=== PATIENT | female | born 1940 | race Asian ===

== ENCOUNTER 2024-02-26 17:03 | Inpatient (IN) | payer OTHER, SELFPAY ==
[2024-02-26] VITALS (14 sets, daily range): BP systolic 141–170; BP diastolic 75–97; BMI 23.3
--- NOTE | 2024-02-26 13:45 | ED.GENMED ---
ED Provider Triage
<Noemy Patterson PA-C - Last Filed: 02/26/24 16:55>
-
Patient seen by provider in Triage?: Seen in Triage
Attestation: A medical screening examination has been initiated by a qualified medical provider. Based on the assessment performed at this time, it has been determined that an emergent medical condition may exist and the patient has been informed
that further medical evaluation and possible additional diagnostic testing may be needed.
HPI: 83yoF here with black stools x 4 days. Had outpatient blood work on 02/16/24 which showed a hemoglobin of 7.6. Hx of colon cancer, currently on PO chemo. Moving to the area from [place]. Has a new patient appt with Luis Enrique Smiley next week. Told to go
to the ED due to her dark stools.
GENERAL: Alert , in no apparent distress
EYE: No visual abnormalities.
NECK: Trachea midline
ENT: No visible abnormalities.
LUNGS: No acute respiratory distress
NEUROLOGICAL: Alert and oriented
SKIN: Skin intact. Pallor noted.
MUSCULOSKELETAL: Moving extremities normally
PSYCH: Normal and appropriate interaction.
This is a medical evaluation conducted in person to initiate diagnostic evaluation and provide initial therapeutics. Please see further documentation by the treating clinician.
CBC, CMP, coags, and type and screen ordered.
History of Present Illness
<Noemy Patterson PA-C - Last Filed: 02/26/24 16:55>
General
Chief Complaint: Abnormal Lab Value
Time Seen by Provider: 02/26/24 14:35
<Jose Mendenhall MD - Last Filed: 02/26/24 16:48>
General
Source: patient and family (Son and daughter)
Exam Limitations: none
Nursing documentation reviewed up to this point in time: agreed with
History of Present Illness
History of Present Illness:
83-year-old female with a past medical history of hypertension, hyperlipidemia, diabetes, dementia, colon cancer who presents to the emergency room with her family for evaluation of anemia found on outpatient labs. Patient recently moved to the
area from [place]. She has been receiving care for colon cancer in [place] she has been on capecitabine. She just had an appointment at [facility] to establish care for her cancer there. During this appointment she had routine blood work drawn�this
was on 02/16/2024. She received a call that she was significantly anemic and that she should go to the emergency room. She does feel very weak and tired. Denies any chest pain, shortness of breath, dizziness. She has had dark stools over the past
few days, no bloody stools. No nausea or vomiting. She has vague generalized abdominal discomfort which has been a chronic issue related to her cancer�no acute change. She is not on any blood thinners. Baseline hemoglobin was around 11 in
May 2023 according to family.
Past History
<Noemy Patterson PA-C - Last Filed: 02/26/24 16:55>
Past History
ED Past Medical History: HTN, Hypercholesterolemia, NIDDM, Psychiatric (Anxiety, Depression) and Other (ULcers, tinnitus)
ED Past Surgical History: Gynecological (D&C)
Social History
Tobacco: Non-smoker
Alcohol: None
Personal:
Living: with family
Review of Systems
<Jose Mendenhall MD - Last Filed: 02/26/24 16:48>
Review of Systems
All Other Systems: ROS reviewed and negative except as documented in HPI and ROS
Constitutional: Reports fatigue; Denies fever
Respiratory: Denies trouble breathing
Cardiac: Denies chest pain or palpitations
ABD/GI: Reports abdominal pain and black stools; Denies nausea, vomiting, diarrhea or constipated
Musculoskeletal: Denies neck pain or back pain
Neurological: Denies dizzy or headache
Phy Exam
<Jose Mendenhall MD - Last Filed: 02/26/24 16:48>
Physical Exam
Physical Exam:
General: Awake, alert; no acute distress
Head: Normocephalic, atraumatic
Eyes: Conjunctiva normal, pale conjunctiva
Throat: Airway intact, handling secretions
Neck: Trachea midline, supple without meningismus
Lungs: Clear to auscultation bilaterally, no wheezing, rales, rhonchi
Heart: Regular rate and rhythm, no murmurs, gallops, or rubs
Abd: Soft, non distended, nontender
Rectal: Dark brown stool heme faintly positive, no rectal masses appreciated
Neuro: No gross deficits
Skin: Somewhat cool and pale
Extremities: No edema in extremities, equal pulses in all extremities
Scores
<Jose Mendenhall MD - Last Filed: 02/26/24 16:48>
Heart Failure Risk
Heart Failure Risk Score: Not Applicable
Heart Score for Chest Pain Patients
STEMI patient?: Not applicable
Withdrawal Assessment of Alcohol
Withdrawal Assessment Completed?: Not applicable
Course
<Noemy Patterson PA-C - Last Filed: 02/26/24 16:55>
Orders/Labs/Results
Orders:
Orders
02/26/24 13:55
Type+Screen Urgent
Complete Blood Count/With Diff Urgent
Comprehensive Metabolic Panel Urgent
PTT Urgent
Prothrombin Time Urgent
02/26/24 14:21
ABO2 Urgent
BBK Wristband Number:
Associate notified that ABO2 has been ordered: Dr. Valdez
Date: 02/26/24
Time: 14:10
Supervisor [employer] Department ID: [id number]
02/26/24 14:55
* Blood Bank Products Urgent
Blood Bank Products: *Packed RBC Leuko(PRBC's)
Quantity: 2
Transfuse Today: Yes
Reason: Anemia
02/26/24 15:42
Pantoprazole [Protonix IV] 80 mg IV NOW STA
02/26/24 16:20
Admit/Transfer Patient As Directed
Co-Sign Provider:
Level of Care: Inpatient admission
Assign to:: Medical/Surgical
Physician / Group: Thi
Diagnosis: Acute blood loss anemia, GI bleed
Reason for Hospitalization: Blood transfusion, GI consult
Expected length of stay greater than two midnights?: Yes
ELOS- Estimated Length of Stay in days: 3
I certify the patient meets the requirements for IP care: Yes
PRN Pain Medication Management As Directed
May give lesser potent ordered pain med per pt: Yes
preference::
Protocol:: Medication orders for pain may be administered in a
manner that supports deferring to patient preference
when the pt is:
- Requesting an ordered lesser potent pain medication.
Least to most potent pain medications are defined
as: acetaminophen < NSAID < tramadol < opioids
(morphine, oxycodone, hydromorphone).
- Requesting a lesser dose of the same medication IF
ORDERED.
- Requesting a less intrusive route of administration
if both routes are prescribed by the provider (PO <
IV).
02/26/24 16:22
Code Status As Directed
Resuscitation Status: Do not resuscitate
Reached after discussion with pt or family/Healthcare POA: Yes
DNR Bracelet Application ONCE
Abnormal Lab Results
02/26/24
13:55
RBC 2.09 L 10^6/uL
(4.20-5.40)
Hgb 6.5 L* g/dL
(12.0-16.0)
Hct 19.8 L* %
(37.0-47.0)
MCH 31.1 H pg
(27.0-31.0)
MCHC 32.8 L g/dL
(33.0-37.0)
RDW 22.4 H %
(11.5-14.5)
Absolute Lymphs (auto) 1.0 L 10^3/uL
(1.2-3.4)
Lymphocytes % 17.9 L %
(20.5-51.1)
PT 15.9 H Sec
(11.4-14.6)
Sodium 133 L mmol/L
(135-145)
Glucose 277 H mg/dl
(70-99)
Alkaline Phosphatase 32 L U/L
(38-126)
Total Protein 5.5 L g/dl
(6.3-8.2)
Albumin 3.3 L g/dl
(3.5-5.0)
Crossmatch IS Only See Detail
02/26/24 13:55
02/26/24 13:55
Vital Signs
Initial and Last Documented VS:
Initial Vital Signs
Temp Pulse Resp BP Pulse Ox
98.3 F 84 18 161/85 100
02/26/24 13:46 02/26/24 13:46 02/26/24 13:46 02/26/24 13:46 02/26/24 13:46
Last Documented Vital Signs
Temp Pulse Resp BP Pulse Ox
98.6 F 68 19 170/83 99
02/26/24 15:49 02/26/24 16:27 02/26/24 16:27 02/26/24 16:27 02/26/24 16:27
<Jose Mendenhall MD - Last Filed: 02/26/24 16:48>
Orders/Labs/Results
Orders:
Orders
02/26/24 13:55
Type+Screen Urgent
Complete Blood Count/With Diff Urgent
Comprehensive Metabolic Panel Urgent
PTT Urgent
Prothrombin Time Urgent
02/26/24 14:21
ABO2 Urgent
BBK Wristband Number:
Associate notified that ABO2 has been ordered: Dr. Valdez
Date: 02/26/24
Time: 14:10
Supervisor [employer] Department ID: [id number]
02/26/24 14:55
* Blood Bank Products Urgent
Blood Bank Products: *Packed RBC Leuko(PRBC's)
Quantity: 2
Transfuse Today: Yes
Reason: Anemia
02/26/24 15:42
Pantoprazole [Protonix IV] 80 mg IV NOW STA
02/26/24 16:20
Admit/Transfer Patient As Directed
Co-Sign Provider:
Level of Care: Inpatient admission
Assign to:: Medical/Surgical
Physician / Group: Thi
Diagnosis: Acute blood loss anemia, GI bleed
Reason for Hospitalization: Blood transfusion, GI consult
Expected length of stay greater than two midnights?: Yes
ELOS- Estimated Length of Stay in days: 3
I certify the patient meets the requirements for IP care: Yes
PRN Pain Medication Management As Directed
May give lesser potent ordered pain med per pt: Yes
preference::
Protocol:: Medication orders for pain may be administered in a
manner that supports deferring to patient preference
when the pt is:
- Requesting an ordered lesser potent pain medication.
Least to most potent pain medications are defined
as: acetaminophen < NSAID < tramadol < opioids
(morphine, oxycodone, hydromorphone).
- Requesting a lesser dose of the same medication IF
ORDERED.
- Requesting a less intrusive route of administration
if both routes are prescribed by the provider (PO <
IV).
02/26/24 16:22
Code Status As Directed
Resuscitation Status: Do not resuscitate
Reached after discussion with pt or family/Healthcare POA: Yes
DNR Bracelet Application ONCE
Abnormal Lab Results
02/26/24
13:55
RBC 2.09 L 10^6/uL
(4.20-5.40)
Hgb 6.5 L* g/dL
(12.0-16.0)
Hct 19.8 L* %
(37.0-47.0)
MCH 31.1 H pg
(27.0-31.0)
MCHC 32.8 L g/dL
(33.0-37.0)
RDW 22.4 H %
(11.5-14.5)
Absolute Lymphs (auto) 1.0 L 10^3/uL
(1.2-3.4)
Lymphocytes % 17.9 L %
(20.5-51.1)
PT 15.9 H Sec
(11.4-14.6)
Sodium 133 L mmol/L
(135-145)
Glucose 277 H mg/dl
(70-99)
Alkaline Phosphatase 32 L U/L
(38-126)
Total Protein 5.5 L g/dl
(6.3-8.2)
Albumin 3.3 L g/dl
(3.5-5.0)
Crossmatch IS Only See Detail
02/26/24 13:55
02/26/24 13:55
Vital Signs
Initial and Last Documented VS:
Initial Vital Signs
Temp Pulse Resp BP Pulse Ox
98.3 F 84 18 161/85 100
02/26/24 13:46 02/26/24 13:46 02/26/24 13:46 02/26/24 13:46 02/26/24 13:46
Last Documented Vital Signs
Temp Pulse Resp BP Pulse Ox
98.6 F 68 19 170/83 99
02/26/24 15:49 02/26/24 16:27 02/26/24 16:27 02/26/24 16:27 02/26/24 16:27
<Jose Mendenhall MD - Last Filed: 02/26/24 16:48>
MDM/Problems Addressed
Differential Diagnosis Includes:
Acute on chronic anemia�likely secondary to GI bleeding from cancer versus ulcer versus AVM
MDM/Problems Addressed:
83-year-old female presents for evaluation of acute on chronic anemia�hemoglobin 7.5 on labs drawn 02/16/2024. Also has had dark stools for the past few days. She is not on a blood thinner. Mildly hypertensive, heart rate 70s 80s, rest of vitals
normal. Physical exam as above�notable for faintly positive Hemoccult. Will place large-bore IV send labs including a CBC and a CMP, type and screen, coags. Plan for transfusion of PRBCs�consented for transfusion.
Labs reviewed: CBC confirms anemia�actually worsening now 6.5 today with hematocrit of 19.8%. Platelets acceptable. CMP shows hyperglycemia in the setting of known diabetes no signs of DKA no other clinically significant abnormalities. Transfused
2 units of PRBCs. Will treat with IV PPI dark stools and positive heme although would expect that bleeding is more likely cancer related. Case discussed with hospitalist for admission.
Chronic conditions affecting care:
Colon cancer
Acute Exacerbation and/or Progression of Chronic Illness:
Acutely hypertensive
Acute Exacerbation and/or Progression of Chronic Illness: HTN
<Jose Mendenhall MD - Last Filed: 02/26/24 16:48>
*Pulse Oximetry
Patient hypoxic: no
*Critical Care Note
Total Time (30-74mins, 75-104mins- exclusive of procedures): Not Applicable
Data Reviewed
Source: patient and family
<Jose Mendenhall MD - Last Filed: 02/26/24 16:48>
Patient Management
Discussion with other providers: Hospitalist (Discussed with hospitalist)
Escalation/DeEscalation of care consider admission/obs:
Admission indicated
ED Attending Note
<Noemy Patterson PA-C - Last Filed: 02/26/24 16:55>
-
Portions of this chart may have been created with voice recognition software.� Occasional wrong word or��sound alike� substitutions may have occurred due to the inherent limitations of voice recognition software.
Discharge Plan
Departure
Patient Disposition: Admit
Date of Disposition: 02/26/24
Time of Disposition: 15:43
Admit to doctor: Megan
Presentation/result/management discussed w/ accepting MD/DO: Hospitalist
Discharge Problem:
GI bleed, Acute on chronic blood loss anemia
Prescriptions:
No Action
atorvastatin [Lipitor] 10 mg Tablet
10 mg PO DAILY
acetaminophen-codeine 300-30 mg tablet
1 tab PO Q6HPRN PRN (Reason: SEVERE PAIN)
capecitabine 500 mg Tablet
1,000 mg PO BID
famotidine [Pepcid] 20 mg Tablet
20 mg PO HS
rivastigmine tartrate 3 mg Capsule
3 mg PO BID
oxycodone 5 mg Tablet
5 mg PO HS
ezetimibe [Zetia] 10 mg Tablet
10 mg PO DAILY
ibuprofen-acetaminophen [Advil Dual Action] 125-250 mg Tablet
1 tab PO Q8HPRN PRN (Reason: MILD PAIN)
Referrals:
NONE,* [Family Provider] -
Interventions
Interventions:
*Risk Screen - Suicide Last Done: 02/26/24 15:42
*General Assessment Last Done: 02/26/24 15:35
*Neglect/Abuse Screening Last Done: 02/26/24 15:35
ED- Fall Risk Assessment Last Done: 02/26/24 15:46
*ED COVID-19 Vaccine History Last Done: 02/26/24 15:35
Discharge Date and Time
Print Language: NAURUAN
[2024-02-26 14:23] LABS: ALT (SGPT) 16 U/L (0-35); AST (SGOT) 23 U/L (14-36); Albumin 3.3 g/dl (3.5-5.0); Alkaline Phosphatase 32 U/L (38-126); Blood Urea Nitrogen 17 mg/dl (7-17); Calcium 8.4 mg/dl (8.4-10.2); Carbon Dioxide 23 mmol/L (22-30); Chloride 101 mmol/L (98-107); Glucose 277 mg/dl (70-99); INR 1.29; PT 15.9 Sec (11.4-14.6); Potassium 4.1 mmol/L (3.5-5.1); Sodium 133 mmol/L (135-145); Total Bilirubin 0.6 mg/dl (0.2-1.3); Total Protein 5.5 g/dl (6.3-8.2); eGFR > 60.00
[2024-02-26 14:25] LABS: APTT 31.8 Sec (23.4-35.0)
[2024-02-26 15:08] LABS: Hematocrit 19.8 % (37.0-47.0); Hemoglobin 6.5 g/dL (12.0-16.0); Mean Corp Hgb Conc. 32.8 g/dL (33.0-37.0); Mean Corpuscular Hgb 31.1 pg (27.0-31.0); Mean Corpuscular Volume 94.7 fL (81.0-99.0); Mean Platelet Volume 8.7 fL (7.4-10.4); Platelet Count 361 10^3/uL (130-400); Red Blood Cell Count 2.09 10^6/uL (4.20-5.40); Red Cell Dist. Width 22.4 % (11.5-14.5); White Blood Cell Count 5.3 10^3/uL (4.8-10.8)
[2024-02-26 15:20] LABS: % Basophils 0.4 % (0-2); % Eosinophils 0.9 % (0-6); % Immature Granulocytes 0.2 % (0-0.5); % Lymphocytes 17.9 % (20.5-51.1); % Neutrophils 74.6 % (42.2-75.2); Absolute Eosinophils 0.1 10^3/uL (0-0.7); Absolute Monocytes 0.3 10^3/uL (0.1-0.6); Nucleated Red Blood Cells % 0 %
[2024-02-26 15:22] LABS: Anisocytosis 2+; Normal RBC Morphology No
[2024-02-26 15:23] LABS: Hypochromasia 3+
[2024-02-26 15:24] LABS: Microcytosis 1+
--- NOTE | 2024-02-26 16:25 | HPS.HSE ---
Family Physician
-
Family Physician: * NONE
Chief Complaint
-
Melena, abdominal pain
History of Present Illness
83-year-old [place] female accompanied by family to the emergency room for evaluation of melena and abdominal pain along with anemia.
Family provided all of history as patient does not speak Polish. She only speaks Yakut.
Family states she was diagnosed with gastric cancer in December in [place]. She just moved to [place] this past week.
Has been on oral chemotherapy for gastric cancer since diagnosis. Has not had any surgery.
Has had chronic abdominal pain for the past year.
Has never been transfused.
Last colonoscopy was 2009.
Denies hematochezia.
Has been using ibuprofen on a daily basis for treatment of abdominal pain.
Medical History
Past Medical History
Past Medical History: Reports Other
Additional Past Medical History:
Lewy body dementia
Gastric cancer
Essential hypertension
DM2
Hyperlipidemia
Past Surgical History: Reports Other
Additional Past Surgical History:
Bilateral cataract surgery
Social History
Tobacco: Non-smoker
Alcohol: None
Drug: None
Personal:
Living: With Family
Employment: Not Employed
Family History
Family History: Not pertinent
Allergies / Home Medications
Allergies reflects when Allergies were last updated in [email or web address].
Home Medications with original date entered in [email or web address]
Allergy/Medication List:
Allergies
Allergy/AdvReac Type Severity Reaction Status Date / Time
No Known Allergies Allergy Verified 02/26/24 13:49
Home Medications
acetaminophen 300 mg-codeine 30 mg tablet 1 tab PO Q6HPRN PRN SEVERE PAIN 02/26/24
atorvastatin 10 mg tablet (Lipitor) 10 mg PO DAILY 02/26/24
capecitabine 500 mg tablet 1,000 mg PO BID 02/26/24
ezetimibe 10 mg tablet (Zetia) 10 mg PO DAILY 02/26/24
famotidine 20 mg tablet (Pepcid) 20 mg PO HS 02/26/24
ibuprofen 125 mg-acetaminophen 250 mg tablet (Advil Dual Action) 1 tab PO Q8HPRN PRN MILD PAIN 02/26/24
oxycodone 5 mg tablet 5 mg PO HS 02/26/24
rivastigmine tartrate 3 mg capsule 3 mg PO BID 02/26/24
Review of Systems
-
Unable to obtain full review of systems at this time due to: Language Barrier
History Source: Family
Physical Exam
Vital Signs
Vital Signs
Temp Pulse Resp BP Pulse Ox
98.6 F 70 19 165/75 98
02/26/24 15:49 02/26/24 15:49 02/26/24 15:49 02/26/24 15:49 02/26/24 15:00
Physical Exam
General: Well Developed, Well Nourished, No Apparent Distress and Comfortable
HEENT: NormoCephalic, Anicteric and Moist mucous membranes
Respiratory: Clear
Cardiac: S1/S2 and Regular Rhythm
Breast: Deferred by me
GI: Soft, Non Distended and Tender (Periumbilical, no guarding or rebound)
Genito-urinary: Deferred by me
Musculoskeletal: No Clubbing, No Cyanosis and No Edema
Skin: Warm and Dry
Neuro: Awake and Alert
Hematologic/Lymphatic: No Lymphadenopathy
Psych: Calm
Laboratory Results
-
02/26/24 13:55
02/26/24 13:55
Laboratory Results
PT 15.9 Sec (11.4-14.6) H 02/26/24 13:55
INR 1.29 02/26/24 13:55
APTT 31.8 Sec (23.4-35.0) 02/26/24 13:55
Total Bilirubin 0.6 mg/dl (0.2-1.3) 02/26/24 13:55
AST 23 U/L (14-36) 02/26/24 13:55
ALT 16 U/L (0-35) 02/26/24 13:55
Alkaline Phosphatase 32 U/L (38-126) L 02/26/24 13:55
Impression/Plan
-
Acute on chronic blood loss anemia -due to GI bleed. Suspect due to underlying malignancy, cannot rule out peptic ulcer disease due to NSAIDs. Admit to MedSurg. Blood transfusions initiated in the emergency room. Hemodynamically stable. CBC in
the morning.
Acute on chronic GI bleed -suspect related to underlying gastric cancer, rule out peptic ulcer disease due to NSAIDs. Continue IV Protonix. Consult gastroenterology. Clear liquid diet, n.p.o. after midnight. Stop NSAIDs, discussed with family.
Gastric cancer -on Xeloda since diagnosis in December in [place]. To establish care with oncology at [facility], Dr. Skyler Downing, first appointment next week.
Family requesting that we do not discuss cancer diagnosis with the patient as it would cause undue harm from a mental health standpoint.
Essential hypertension -blood pressure elevated in the emergency room. Previously on telmisartan�HCTZ, 40/12.5 mg 1 tablet daily, but family states it was discontinued in the past month due to hypotension. Monitor blood pressures in the hospital
and may need to resume single agent if needed.
DM2 with hyperglycemia -glucose 277 today. Check HgbA1c, use low resistance sliding scale. Family states her diabetes meds (Glipizide, Metformin) were stopped in the past month due to poor oral intake.
Hyperlipidemia -on atorvastatin.
Lewy body dementia
DNR -discussed with family.
Son and daughter updated at the bedside.
[2024-02-26] MEDS: EXELON 3 MG PO (20:19)
[2024-02-26] MEDS: PROTONIX IV 40 MG IV (20:19)
[2024-02-26] MEDS: NSS (PRESERVATIVE FREE) 10 ML IV (20:19)
[2024-02-26 21:45] LABS: Glucose - Point of Care 162 mg/dl (70-99)
[2024-02-26] MEDS: ROXICODONE 5 MG PO (21:50)
--- NOTE | 2024-02-27 04:16 | DOWNTIME ---
There was a [employer]ified Medical [employer]os[employer] Downtime on 02/27/2024 from 0100 to 02/27/2024 at 0355. Downtime documentation of patient's care, including medication administrations, has been reconciled in the electronic record per guidelines. Refer to the
patient's paper chart under the miscellaneous tab to see printed paper medication records and downtime forms.
[2024-02-27 05:49] LABS: Glucose - Point of Care 125 mg/dl (70-99)
[2024-02-27 06:34] LABS: % Basophils 0.3 % (0-2); % Eosinophils 2.1 % (0-6); % Immature Granulocytes 0.5 % (0-0.5); % Lymphocytes 15.4 % (20.5-51.1); % Monocytes 7.6 % (1.7-9.3); % Neutrophils 74.1 % (42.2-75.2); Absolute Eosinophils 0.1 10^3/uL (0-0.7); Absolute Lymphocytes 0.9 10^3/uL (1.2-3.4); Absolute Monocytes 0.4 10^3/uL (0.1-0.6); Absolute Neutrophils 4.3 10^3/uL (1.4-6.5); Hematocrit 29.1 % (37.0-47.0); Hemoglobin 10.3 g/dL (12.0-16.0); Mean Corp Hgb Conc. 35.4 g/dL (33.0-37.0); Mean Corpuscular Hgb 32.8 pg (27.0-31.0); Mean Corpuscular Volume 92.7 fL (81.0-99.0); Mean Platelet Volume 8.2 fL (7.4-10.4); Nucleated Red Blood Cells % 0 %; Platelet Count 290 10^3/uL (130-400); Red Blood Cell Count 3.14 10^6/uL (4.20-5.40); Red Cell Dist. Width 18.8 % (11.5-14.5); White Blood Cell Count 5.8 10^3/uL (4.8-10.8)
[2024-02-27 07:29] LABS: Blood Urea Nitrogen 11 mg/dl (7-17); Calcium 8.7 mg/dl (8.4-10.2); Carbon Dioxide 24 mmol/L (22-30); Chloride 106 mmol/L (98-107); Estimated Creatinine Clearance 55 ml/min; Glucose 124 mg/dl (70-99); Potassium 3.9 mmol/L (3.5-5.1); Sodium 138 mmol/L (135-145); eGFR > 60.00
[2024-02-27 07:30] VITALS: BP 166/82
[2024-02-27] MEDS: ZETIA 10 MG PO (07:36)
[2024-02-27] MEDS: PROTONIX IV 40 MG IV (07:37)
[2024-02-27] MEDS: LIPITOR 10 MG PO (07:37)
[2024-02-27] MEDS: EXELON 3 MG PO (07:37)
[2024-02-27] MEDS: NSS (PRESERVATIVE FREE) 10 ML IV (07:37)
--- NOTE | 2024-02-27 08:29 | CON.GI ---
Addendum entered and electronically signed by Katrin Gipson Do, MD 02/27/24 13:35:
I saw and examined the patient.
The [facility] A DRIVER's note was reviewed and I agree with the note.
Comment: Patient is known to myself in 2020 for stomach discomfort. EGD recommended and pt declined. Later on in [place] dx with gastric ca. Admitted for abd pain and melena. Vitals stable. Demented and forgetful. Labs reviewed. Family do not
want endoscopic therapy or aggressive care. Agree with PPI and close OP FU with oncology at [facility]. GI will sign off please call for questions. Case d/w hospitalist
Original Note:
Consultation
-
Date/Time Consultation Requested: 02/26/241748
Date/Time Consultation Performed: 02/27/24 0800
Requesting Provider: Dr. Ness
Performing Provider: Dr. Day/Chelsi VARGAS
Reason for Consultation: anemia, recent melena
Medical History
Chief Complaint / HPI
Chief Complaint: anemia, abd pain
History of Present Illness:
83-year-old female Czech speaking accompanied by her son Foreign Whitlock who acts as a publicity manager presents to the emergency room after just moving here less than 1 week ago from [place] after being diagnosed with gastric adenocarcinoma in October of this
year. She also has a past medical history of Lewy body dementia, hypertension, hyperlipidemia, diabetes. Her son states that she was living with his sister when in October she started having abdominal discomfort. She had a CT scan that showed a
mass. She underwent an endoscopy that confirmed gastric adenocarcinoma. She met with oncology as well as surgical oncology and was offered a possible surgical resection however they felt that this would not be curative and would decrease her
quality of life. They offered IV chemotherapy however with her Lewy body dementia felt that this would worsen her prognosis. It was then decided she would go on Xeloda. The patient was started on this in December and just moved back to [place]
to be with family. The patient has an appointment with Dr. Skyler Downing at [facility] on Sunday. All her records were transferred over from [place]. The patient did have an episode of melena on Sunday and her recent hemoglobin was
sent over to [facility] who then advised her to come to the emergency room because of significant anemia. The patient was on a regimen for abdominal pain that was alternating Tylenol with Advil. She was taken approximately 600 mg of Advil daily.
He is on famotidine only for GI prophylaxis. She has not had any known melena since Sunday. Patient has had no signs of active bleeding overnight. She was transfused 2 units of packed cells for hemoglobin of 6.5. This morning her hemoglobin is
10.3. She cannot eat solid foods as it causes her GI distress. She is on essentially a full liquid diet at home. She is drinking ensure/boost. After discussion with her son the goal is to get her to Dr. Downing and discuss plans for palliation
and possibly eventually hospice. Offered upper endoscopy today however they are declining. Patient denies any fevers, chills, vomiting, hematochezia, dysphagia. She does have chronic abdominal pain.
Past Medical History
Past Medical History: Cancer (Gastric adenocarcinoma), HTN, Hypercholesterolemia, NIDDM and Other (Lewy body dementia)
Social History
Tobacco: Non-Smoker
Alcohol: None
Drug: None
Personal:
Living: With Family
Family History
Family History: Other (Family history of colon cancer, it is possible that her father had gastric cancer)
Allergies / Home Medications
Allergy/AdvReac Type Severity Reaction Status Date / Time
No Known Allergies Allergy Verified 02/26/24 13:49
�Medication �Instructions �Recorded
acetaminophen 300 mg-codeine 30 mg 1 tab PO Q6HPRN PRN SEVERE PAIN 02/26/24
tablet
atorvastatin 10 mg tablet (Lipitor) 10 mg PO DAILY 02/26/24
capecitabine 500 mg tablet 1,000 mg PO BID 02/26/24
ezetimibe 10 mg tablet (Zetia) 10 mg PO DAILY 02/26/24
famotidine 20 mg tablet (Pepcid) 20 mg PO HS 02/26/24
ibuprofen 125 mg-acetaminophen 250 1 tab PO Q8HPRN PRN MILD PAIN 02/26/24
mg tablet (Advil Dual Action)
oxycodone 5 mg tablet 5 mg PO HS 02/26/24
rivastigmine tartrate 3 mg capsule 3 mg PO BID 02/26/24
Review of Systems
-
All other systems: A 12 pt ROS was Negative except as stated above in HPI
Vital Signs
Temp Pulse Resp BP Pulse Ox
98.3 F 69 16 166/82 99
02/27/24 07:30 02/27/24 07:30 02/27/24 07:30 02/27/24 07:30 02/27/24 07:30
Physical Exam
Exam
General: No Apparent Distress
HEENT: Anicteric
Respiratory: Clear (Anterior)
Cardiac: Regular Rhythm
GI: Soft, Non Distended, Normal Bowel Sounds and Tender (Diffuse abdominal tenderness most apparent in upper abdomen)
Skin: Warm and Dry
Neuro: Awake and Alert
Psych: Calm
Results
WBC 5.8 10^3/uL (4.8-10.8) 02/27/24 06:21
Hgb 10.3 g/dL (12.0-16.0) L D 02/27/24 06:21
Hct 29.1 % (37.0-47.0) L 02/27/24 06:21
MCV 92.7 fL (81.0-99.0) 02/27/24 06:21
Plt Count 290 10^3/uL (130-400) 02/27/24 06:21
Absolute Neuts (auto) 4.3 10^3/uL (1.4-6.5) 02/27/24 06:21
PT 15.9 Sec (11.4-14.6) H 02/26/24 13:55
INR 1.29 02/26/24 13:55
APTT 31.8 Sec (23.4-35.0) 02/26/24 13:55
Sodium 138 mmol/L (135-145) 02/27/24 06:21
Potassium 3.9 mmol/L (3.5-5.1) 02/27/24 06:21
Chloride 106 mmol/L (98-107) 02/27/24 06:21
Carbon Dioxide 24 mmol/L (22-30) 02/27/24 06:21
BUN 11 mg/dl (7-17) 02/27/24 06:21
Creatinine 0.5 mg/dL (0.6-1.0) L 02/27/24 06:21
Calcium 8.7 mg/dl (8.4-10.2) 02/27/24 06:21
Total Bilirubin 0.6 mg/dl (0.2-1.3) 02/26/24 13:55
AST 23 U/L (14-36) 02/26/24 13:55
ALT 16 U/L (0-35) 02/26/24 13:55
Alkaline Phosphatase 32 U/L (38-126) L 02/26/24 13:55
Diagnostic Image Results:
Prior GI Procedures:
EGD: Per send this was performed in October/November 2023 in [place]. Records unavailable to me
Colonoscopy:
Assessment / Plan
-
83-year-old female Czech speaking accompanied by her son Foreign Whitlock who acts as a publicity manager presents to the emergency room after just moving here less than 1 week ago from [place] after being diagnosed with gastric adenocarcinoma in October of this
year. She also has a past medical history of Lewy body dementia, hypertension, hyperlipidemia, diabetes who presents to the emergency room with abdominal pain, melena on Sunday and hemoglobin of 6.5. She was transfused 2 units of packed red blood
cells which brought her hemoglobin to 10. She has had no signs of bleeding while here. Patient was on Advil 3 times a day as recommended by her physicians in [place]. Patient had brown occult blood stool in the ER which is to be expected given her
history of gastric cancer and taking Advil. After discussion with son there wish is to not to pursue any endoscopic intervention. They do have an appointment with Dr. Skyler Espinal at [facility] on Sunday. They are most likely going
to go a palliative care/hospice approach in the near future. Discussed with him at length to stop Advil/NSAIDs. Patient only on famotidine. Will add PPI. Also will give Carafate suspension here. When discharged home most cost effective will be
tablets and discussed with him how to dissolve and give to his mother 4 times daily. Patient only taking in full liquid diet as solid foods cause GI distress.
Impression:
Gastric adenocarcinoma on Xeloda
Anemia
Plan:
-Patient family declining endoscopic intervention
-Hemoglobin now in acceptable range
-Avoid all NSAID products. Discussed with son at length.
-Add pantoprazole here 40 mg twice daily, recommend discharge on that dosage
-Can continue famotidine
-Add Carafate suspension 1 g 4 times daily, recommend discharge on Carafate 1 g tablet 4 times daily (discussed with son how to dissolve to give to his mother as this would be most cost effective)
-Follow-up with Dr. Espinal at [facility]
-Nothing further to add from a GI perspective. If we can be of further assistance please call back.
-
-
Thank you for consultation and allowing me to participate in the patient's care. Please call the sleeping car conductor GI physician during the after hours with any questions or concerns.
[2024-02-27 09:53] LABS: Glucose - Point of Care 132 mg/dl (70-99)
[2024-02-27 10:21] LABS: Glycohemoglobin (HgbA1c) 6.4 % (4.0-5.6)
--- NOTE | 2024-02-27 10:23 | W.DS.TRANS ---
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
-
Discharge Instructions:
Discharge Diagnosis/Procedures Symptomatic anemia, GI bleed
Diet Regular
Activity As tolerated
Driving Restrictions As prior to admission
Bathing Restrictions None
Blood Work CBC in one week
Instructions:
Stand-Alone Forms:
Changes to Home Medications: Yes
Discharge Medications:
DC Medications w/original date entered in [employer]
acetaminophen 300 mg-codeine 30 mg tablet 1 tab PO Q6HPRN PRN SEVERE PAIN 02/26/24
atorvastatin 10 mg tablet (Lipitor) 10 mg PO DAILY High Cholesterol 02/26/24
capecitabine 500 mg tablet 1,000 mg PO BID Cancer 02/26/24
ezetimibe 10 mg tablet (Zetia) 10 mg PO DAILY High Cholesterol 02/26/24
famotidine 20 mg tablet (Pepcid) 20 mg PO HS Gastrointestinal Issue 02/26/24
oxycodone 5 mg tablet 5 mg PO HS Pain 02/26/24
rivastigmine tartrate 3 mg capsule 3 mg PO BID Lewy body dementia 02/26/24
pantoprazole 40 mg tablet,delayed release (Protonix) 40 mg PO BID #60 tabs 02/27/24
sucralfate 1 gram tablet (Carafate) 1 g PO ACHS #120 tabs 02/27/24
Home Medication Changes
Stop ibuprofen.
Pending Results: No
[2024-02-27] MEDS: CARAFATE SUSPENSION 1 GM PO (11:29)
--- NOTE | 2024-02-27 11:46 | W.PN.HOSP.TC ---
Today's Communication/Plan
-
Discharge
Assessment / Plan
Assessment / Plan
Gen-awake, alert, NAD
HEENT-NC, AT, anicteric, clear oral mm
Neck-supple
CV-reg, no M, +S1/S2
Lungs-clear B/L
Abd-soft, NT, ND
Ext-no edema
Musculoskeletal-no cyanosis, clubbing
Skin-warm and dry
Neuro-grossly non-focal
Psych-calm, cooperative
Acute on chronic blood loss anemia -due to GI bleed. Suspect due to underlying malignancy, cannot rule out peptic ulcer disease due to NSAIDs. Hemoglobin improved to 10.3 today, received 2 units of blood overnight. Hemodynamically stable. No
bleeding in the hospital.
Acute on chronic GI bleed -suspect related to underlying gastric cancer, rule out peptic ulcer disease due to NSAIDs. Stop NSAIDs, discussed with family. GI input noted, family requesting noninvasive treatment. GI service recommends outpatient
follow-up, twice daily Protonix, Carafate 4 times a day.
Gastric cancer -on Xeloda since diagnosis in December in [place]. To establish care with oncology at [facility], Dr. Skyler Downing, first appointment next week.
Family requesting that we do not discuss cancer diagnosis with the patient as it would cause undue harm from a mental health standpoint.
Essential hypertension -blood pressure elevated in the emergency room. Previously on telmisartan�HCTZ, 40/12.5 mg 1 tablet daily, but family states it was discontinued in the past month due to hypotension. Monitor blood pressures in the hospital
and may need to resume single agent if needed.
DM2 with hyperglycemia -glucose 277 today. Hemoglobin A1c 6.4%, use low resistance sliding scale. Family states her diabetes meds (Glipizide, Metformin) were stopped in the past month due to poor oral intake.
Hyperlipidemia -on atorvastatin.
Lewy body dementia
DNR -discussed with family
Dispo -stable for discharge today. Outpatient follow-up with oncology. Discussed with son at the bedside. All questions answered.
32-minute spent in discharge process.
Anticipated Discharge: Today
Subjective/Interval History
-
Date of Service: February 27, 2024
Patient seen and examined. No complaints. Family at the bedside.
Objective Data
-
Labs:
Laboratory Results
02/27/24
06:21
WBC 5.8
Hgb 10.3 L D
Hct 29.1 L
Plt Count 290
Sodium 138
Potassium 3.9
Chloride 106
Carbon Dioxide 24
BUN 11
Creatinine 0.5 L
Glucose 124 H
Calcium 8.7
Vital Signs:
Vital Signs
Temp Pulse Resp BP Pulse Ox
98.3 F 69 16 166/82 99
02/27/24 07:30 02/27/24 07:30 02/27/24 07:30 02/27/24 07:30 02/27/24 07:30
I&O
02/26/24 02/27/24 02/28/24
06:59 06:59 06:59
Intake Total 740 / 740
Balance 740 / 740
Review of Systems
-
Unable to obtain full review of systems at this time due to: Language Barrier
[2024-02-27 12:15] VITALS: BP 157/80
== END 2024-02-27 12:42 | disposition home or self-care (01) | DRG 812 ==
LOC: 3 WEST ACU 17:03
PROVIDERS: Physician Assistant; ADMITTING PHYSICIAN Hospitalist; CONSULT PHYSICIAN Internal Medicine Gastroenterology; EMERGENCY PHYSICIAN Emergency Medicine
PROC: 30233N1 Transfusion of Nonautologous Red Blood Cells into Peripheral Vein, Percutaneous Approach (ICD-10-PCS; 2024-02-26)
DX: D62 Acute posthemorrhagic anemia (principal); F02.84 Dementia in other diseases classified elsewhere, unspecified severity, with anxiety; F02.83 Dementia in other diseases classified elsewhere, unspecified severity, with mood disturbance; K92.1 Melena; C16.9 Malignant neoplasm of stomach, unspecified; E11.65 Type 2 diabetes mellitus with hyperglycemia; G31.83 Neurocognitive disorder with Lewy bodies; F32.A Depression, unspecified; I10 Essential (primary) hypertension; Z66 Do not resuscitate; E78.00 Pure hypercholesterolemia, unspecified; G89.29 Other chronic pain; R23.1 Pallor; Z79.899 Other long term (current) drug therapy; Z85.028 Personal history of other malignant neoplasm of stomach; Z80.0 Family history of malignant neoplasm of digestive organs
CPT/HCPCS: 80048; 80053; 82962; 83036; 85025; 85610; 85730; 86850; 86900; 86901; 86920; 99285; P9016